=== PATIENT | female | born 1985 | race Caucasian/White ===

== ENCOUNTER 2020-05-16 20:36 | Emergency (ER) | payer BC ==
[~2020-05-16 20:36] MED LIST: FLUZONE QU60 MCG/013 IM; NORCO 5-325 TA1 EACH PO; PHENERGAN IM25 MG/ML IVP; XYLOCAINE VISC100 ML EXT; ZOFRAN4 MG PO; ZOVIRAX200 MG PO
[2020-05-16 21:12] LABS: HEMOGLOBIN 13.2 gm/dl (12.3-15.3); RED BLOOD COUNT 4.43 M/UL (4.00-5.10); WHITE BLOOD COUNT 12.4 K/UL (4.5-11.0)
[2020-05-16 21:37] LABS: BUN/CREATININE RATIO 21 (0-10)
[2020-05-16] MEDS ORDERED: OMNICEF 300 MG300 MG PO (23:41)
[2020-05-16] MEDS ORDERED: LOPRESSOR 25 MG25 MG PO (23:41)
== END 2020-05-16 23:56 | disposition home or self-care (01) ==
LOC: ER1 20:36
PROVIDERS: Physician Assistant
DX: N39.0 Urinary tract infection, site not specified (principal); I10 Essential (primary) hypertension; Z88.1 Allergy status to other antibiotic agents
CPT/HCPCS: 80053; 81001; 85025; 96365; 96375; 99284; J0696; J1885; J2765